=== PATIENT | female | born 1985 | race American Indian/Alaskan Native ===

== ENCOUNTER 2018-11-20 18:21 | Outpatient (CLI) | payer MEDICAID ==
[2018-11-20] MEDS ORDERED: LACTATED RINGERS 1,000 ML IV SCH (19:00)
[2018-11-20 19:19] LABS: Bacteria,Urine 1+ /HPF (Negative); Bilirubin,Urine NEG (Negative); Blood,Urine NEG (Negative); Calcium Oxalate Crystals,Urine 2+; Color,Urine Yellow (Yellow); Mucus,Urine FEW /HPF; Protein,Urine <15 mg/dL mg/dL (Negative); WBC,Urine < 1.0 /HPF (0.0-6.0)
[2018-11-20 22:22] VITALS: BP 108/55
--- NOTE | 2018-11-20 22:31 | Ultrasound Report ---
ULTRASOUND BIOPHYSICAL PROFILE INDICATION / CLINICAL INFORMATION: leaking fluid/IUGR. COMPARISON: None available. FINDINGS: BREATHING MOVEMENT = 2 GROSS BODY MOVEMENT = 2 TONE = 2 QUALITATIVE AMNIOTIC FLUID VOLUME = 2 TOTAL BIOPHYSICAL SCORE = 8/8 AMNIOTIC FLUID INDEX (cm) = 7.7 PRESENTATION: Cephalic. HEART RATE (beats per minute): 152 IMPRESSION: 1. biophysical profile = 8/8 gestational age measures about 32 weeks and 1 day. ULTRASOUND OBSTETRIC Indication: leaking fluid/IUGR Findings: There is a single intrauterine . BPD = 8.2 cm = 33 weeks, 1 day(s). Head circumference = 29.2 cm = 32 weeks, 1 day(s). Abdominal circumference = 27.0 cm = 31 weeks, 1 day(s). Femur length = 2.2 cm = 32 weeks, 2 day(s). Overall estimated sonographic age = 32 weeks, 1 day(s). heart rate is 152 beats per minute. Estimated weight is 1824 grams position is cephalic. Cervix appears closed. movement is present. Placenta is anterior and grade 1 . Amniotic fluid volume appears normal. Maternal adnexa appear normal. Impression: 1. Single living intrauterine with estimated sonographic age of 32 weeks, 1 day 2. No sonographic abnormality identified. Signer Name: Claude Rodríguez MD Signed: 11/20/2018 10:27 PM Workstation Name: [id number]
== END 2018-11-20 23:00 | disposition home or self-care (01) ==
LOC: TRG 18:21
PROVIDERS: ATTEND Obstetrics & Gynecology
DX: O42.913 Preterm premature rupture of membranes, unspecified as to length of time between rupture and onset of labor, third trimester (principal); O36.5930 Maternal care for other known or suspected poor fetal growth, third trimester, not applicable or unspecified; O26.893 Other specified pregnancy related conditions, third trimester; R25.2 Cramp and spasm; O60.03 Preterm labor without delivery, third trimester; Z3A.32 32 weeks gestation of pregnancy
CPT/HCPCS: 59025; 76816; 76819; 81001; 96360; 96361; J7120

== ENCOUNTER 2019-01-05 20:55 | Inpatient (IN) | payer MEDICAID ==
[2019-01-05] MEDS ORDERED: DINOPROSTONE 10 MG VAG SUPP VG ONE (22:10)
[2019-01-05] MEDS ORDERED: ONDANSETRON 4 MG/2 ML INJ IV PRN (22:10)
[2019-01-05] MEDS ORDERED: TERBUTALINE 1 MG/1 ML INJ IVP PRN (22:10)
[2019-01-05] MEDS ORDERED: ePHEDrine SULFATE 50 MG/1 ML INJ IV PRN (22:10)
[2019-01-05] MEDS ORDERED: LIDOCAINE (2%) 20 MG/1 ML VIAL 20 ML MDV INFILTRATI ONE (22:10)
[2019-01-05] MEDS ORDERED: TERBUTALINE 1 MG/1 ML INJ SUB-Q PRN (22:10)
[2019-01-05] MEDS ORDERED: PROMETHAZINE 25 MG TAB PO PRN (22:10)
[2019-01-05] MEDS ORDERED: fentaNYL 100 MCG/2 ML INJ IV PRN (22:10)
[2019-01-05] MEDS ORDERED: MINERAL OIL 30 ML ORAL LIQD PO PRN (22:10)
[2019-01-05] MEDS ORDERED: BUTORPHANOL 2 MG/1 ML INJ IV PRN (22:10)
--- NOTE | 2019-01-05 22:10 | History and Physical Report ---
History of Present Illness Date of examination: 01/05/19 Date of admission: 01/05/19 20:55 Chief complaint: Induction of labor History of present illness: Pt is a 33yo BF EDC 01/11/19; EGA 39 1/7 weeks presents for induction of labor per [facility] due to IUGR. She received care at [facility] since 17 weeks and co-managed by [facility] for IUGR. records are available and GBS is Negative. Past History Past Medical History: no pertinent history Past Surgical History: no surgical history Family/Genetic History: none Social history: no significant social history, single - Obstetrical History Expected Date of Delivery: 01/11/19 Actual Gestation: 39 Week(s) 2 Day(s) : 1 Medications and Allergies Allergies Allergy/AdvReac Type Severity Reaction Status Date / Time No Known Allergies Allergy Verified 11/20/18 18:58 Review of Systems All systems: negative - Vital Signs Vital signs: Vital Signs Pulse Pulse Ox 102 H 98 01/05/19 22:02 01/05/19 22:02 Temp Pulse Resp BP Pulse Ox 108 H 101/73 98 01/05/19 22:03 01/05/19 22:03 01/05/19 22:02 - Physical Exam Breasts: Positive: deferred Cardiovascular: Regular rate Lungs: Positive: Clear to auscultation Abdomen: Positive: normal appearance Genitourinary (Female): Positive: normal external genitalia Vagina: Positive: normal moisture Uterus: Positive: enlarged Extremities: Positive: normal - Obstetrical FHR: category 1 Uterine Contraction Monitor Mode: External Cervical Dilatation: 0.5 Cervical Effacement Percentage: 60 station: -2 Uterine Contraction Pattern: Regular Uterine Tone Measurement Phase: Contraction Uterine Contraction Intensity: Mild Results Result Diagrams: 01/05/19 23:00 All other labs normal. Assessment and Plan - Patient Problems (1) 39 weeks gestation of Onset Date: 01/05/19 Current Visit: Yes Status: Acute Plan to address problem: A: IUP @ 39 1/7 weeks IUGR P: Admit to L&D for cervidil/pitocin induction of labor Obtain [facility] recommendations
[2019-01-05] MEDS ORDERED: LACTATED RINGERS 1,000 ML ONE (22:11)
[2019-01-05] MEDS ORDERED: OXYTOCIN 20 UNIT/1000ML DRIP 20 UNITS/1,000 ML BAG IV SCH (23:00)
[2019-01-05] MEDS ORDERED: OXYTOCIN DRIP 30 UNITS/500 ML BAG IV SCH ×2 (23:00)
[2019-01-05 23:27] LABS: Hematocrit 34.3 % (30.3-42.9); Hemoglobin 11.9 gm/dl (10.1-14.3); Mean Corpuscular HGB Conc 35 % (30-34); Mean Corpuscular Volume 93 fl (79-97); Platelet Count 211 K/mm3 (140-440); Red Blood Count 3.68 M/mm3 (3.65-5.03); Red Cell Distribution Width 13.3 % (13.2-15.2)
[2019-01-06] MEDS: ZOLPIDEM 10 MG TAB PO PRN ×2 (00:13→22:21)
[2019-01-06] MEDS ORDERED: OXYTOCIN DRIP 30 UNITS/500 ML BAG IV SCH (13:45)
--- NOTE | 2019-01-06 14:40 | Progress Note ---
Assessment and Plan - Patient Problems (1) 39 weeks gestation of Onset Date: 01/05/19 Current Visit: Yes Status: Acute Plan to address problem: A: IUP @ 39 2/7 weeks IUGR P: Continue with pitocin induction of labor Obtain [facility] recommendations Subjective - Subjective Date of service: 01/06/19 Principal diagnosis: IUP @ 39 2/7 weeks; IUGR Interval history: Pt is a 33yo BF EDC 01/11/19; EGA 39 2/7 weeks presents for induction of labor per [facility] due to IUGR. She received care at [facility] since 17 weeks and co-managed by [facility] for IUGR. She received cervidil last night and currently about to start pitocin. She is having irregular contractions. Patient reports: movement normal, contractions, no new complaints, no loss of fluid, no vaginal bleeding Objective - Vital Signs Vital Signs: Vital Signs - 12hr 01/06/19 01/06/19 01/06/19 02:47 02:52 02:57 Temperature Pulse Rate 70 79 72 Respiratory Rate Blood Pressure O2 Sat by Pulse 100 97 96 Oximetry 01/06/19 01/06/19 01/06/19 03:02 03:07 03:23 Temperature Pulse Rate 88 73 96 H Respiratory Rate Blood Pressure 116/79 O2 Sat by Pulse 98 97 Oximetry 01/06/19 01/06/19 01/06/19 04:23 05:03 05:11 Temperature 98.4 F Pulse Rate 77 76 Respiratory Rate Blood Pressure 100/59 98/56 O2 Sat by Pulse Oximetry 01/06/19 01/06/19 01/06/19 05:23 06:24 07:23 Temperature 97.5 F L Pulse Rate 71 65 82 Respiratory 18 Rate Blood Pressure 100/63 104/56 108/68 O2 Sat by Pulse Oximetry 01/06/19 01/06/19 01/06/19 08:04 12:00 12:11 Temperature 98.3 F Pulse Rate 85 83 Respiratory Rate Blood Pressure 108/74 O2 Sat by Pulse 96 Oximetry 01/06/19 01/06/19 12:24 14:23 Temperature Pulse Rate 98 H 68 Respiratory Rate Blood Pressure 116/86 106/69 O2 Sat by Pulse Oximetry - Exam Breasts: deferred Abdomen: Present: normal appearance, soft Uterus: Present: normal FHR: category 1 Uterine Contraction Monitor Mode: External Cervical Dilatation: 2 Cervical Effacement Percentage: 80 station: -1 Uterine Contraction Pattern: Irregular Uterine Tone Measurement Phase: Contraction Uterine Contraction Intensity: Mild - Labs Labs: Abnormal Labs 01/05/19 23:00 MCHC 35 H Laboratory Results - last 24 hr 01/05/19 01/05/19 01/05/19 23:00 23:00 23:00 WBC 9.3 RBC 3.68 Hgb 11.9 Hct 34.3 MCV 93 MCH 32 MCHC 35 H RDW 13.3 Plt Count 211 RPR Nonreactive Blood Type O POSITIVE Antibody Screen Negative
[2019-01-06] MEDS: LACTATED RINGERS 1,000 ML IV SCH (16:14)
[2019-01-07] MEDS: LACTATED RINGERS 1,000 ML IV SCH ×2 (06:13→13:03)
--- NOTE | 2019-01-07 12:43 | Progress Note ---
Assessment and Plan - Patient Problems (1) 39 weeks gestation of Onset Date: 01/05/19 Current Visit: Yes Status: Acute Plan to address problem: A: IUP @ 39 3/7 weeks IUGR P: Continue with pitocin induction of labor Obtain [facility] recommendations Subjective - Subjective Date of service: 01/07/19 Principal diagnosis: IUP @ 39 3/7 weeks; IUGR Interval history: Pt is a 33yo BF EDC 01/11/19; EGA 39 3/7 weeks presented for induction of labor per [facility] due to IUGR. She received care at [facility] since 17 weeks and co-managed by [facility] for IUGR. She received cervidil followed by pitocin and currently on 20mu/min and chuyita q 3-5 mins. Patient reports: loss of fluid (AROM clear fluid), movement normal, contractions, no new complaints, no vaginal bleeding Objective - Vital Signs Vital Signs: Vital Signs - 12hr 01/07/19 01/07/19 01/07/19 06:45 07:59 08:00 Temperature 98.3 F Pulse Rate 59 L 63 61 Respiratory 18 Rate Blood Pressure 97/56 109/68 Blood Pressure 109/68 [Left] O2 Sat by Pulse 98 99 Oximetry 01/07/19 01/07/19 01/07/19 08:05 08:10 08:15 Temperature Pulse Rate 57 L 58 L 60 Respiratory Rate Blood Pressure Blood Pressure [Left] O2 Sat by Pulse 99 97 96 Oximetry 01/07/19 01/07/19 01/07/19 08:20 08:25 08:30 Temperature Pulse Rate 56 L 79 55 L Respiratory Rate Blood Pressure Blood Pressure [Left] O2 Sat by Pulse 99 97 97 Oximetry 01/07/19 01/07/19 01/07/19 08:35 08:40 08:45 Temperature Pulse Rate 60 58 L 63 Respiratory Rate Blood Pressure Blood Pressure [Left] O2 Sat by Pulse 97 97 96 Oximetry 01/07/19 01/07/19 01/07/19 08:50 09:08 09:13 Temperature Pulse Rate 59 L 65 57 L Respiratory Rate Blood Pressure Blood Pressure [Left] O2 Sat by Pulse 96 98 97 Oximetry 01/07/19 01/07/19 01/07/19 09:18 09:23 09:28 Temperature Pulse Rate 58 L 54 L 73 Respiratory Rate Blood Pressure Blood Pressure [Left] O2 Sat by Pulse 97 97 98 Oximetry 01/07/19 01/07/19 01/07/19 09:33 09:38 09:39 Temperature Pulse Rate 61 56 L 57 L Respiratory Rate Blood Pressure 121/63 Blood Pressure [Left] O2 Sat by Pulse 99 0 L Oximetry 01/07/19 01/07/19 01/07/19 09:43 10:00 10:01 Temperature Pulse Rate 68 50 L 68 Respiratory Rate Blood Pressure 115/78 Blood Pressure [Left] O2 Sat by Pulse 98 84 Oximetry 01/07/19 01/07/19 01/07/19 10:50 10:51 10:55 Temperature Pulse Rate 79 94 H 90 Respiratory Rate Blood Pressure 104/74 Blood Pressure [Left] O2 Sat by Pulse 96 96 Oximetry 01/07/19 01/07/19 01/07/19 11:00 11:05 11:10 Temperature Pulse Rate 101 H 86 78 Respiratory Rate Blood Pressure Blood Pressure [Left] O2 Sat by Pulse 96 96 95 Oximetry 01/07/19 01/07/19 01/07/19 11:15 11:20 11:25 Temperature Pulse Rate 86 74 79 Respiratory Rate Blood Pressure Blood Pressure [Left] O2 Sat by Pulse 96 97 97 Oximetry 01/07/19 01/07/19 01/07/19 11:30 11:35 11:40 Temperature 98.3 F Pulse Rate 78 87 70 Respiratory 18 Rate Blood Pressure Blood Pressure 104/74 [Left] O2 Sat by Pulse 97 97 97 Oximetry 01/07/19 01/07/19 01/07/19 11:45 11:50 11:55 Temperature Pulse Rate 71 79 69 Respiratory Rate Blood Pressure Blood Pressure [Left] O2 Sat by Pulse 97 98 98 Oximetry 01/07/19 01/07/19 01/07/19 12:09 12:14 12:19 Temperature Pulse Rate 64 73 66 Respiratory Rate Blood Pressure Blood Pressure [Left] O2 Sat by Pulse 100 99 97 Oximetry 01/07/19 01/07/19 01/07/19 12:24 12:29 12:33 Temperature Pulse Rate 63 70 91 H Respiratory Rate Blood Pressure Blood Pressure [Left] O2 Sat by Pulse 97 98 92 Oximetry 01/07/19 12:34 Temperature Pulse Rate 100 H Respiratory Rate Blood Pressure Blood Pressure [Left] O2 Sat by Pulse 98 Oximetry - Exam Uterus: Present: normal FHR: category 1 Uterine Contraction Monitor Mode: External Cervical Dilatation: 1.5 Cervical Effacement Percentage: 90 station: -1 Uterine Contraction Pattern: Regular Uterine Tone Measurement Phase: Contraction Uterine Contraction Intensity: Mild - Labs Labs: Abnormal Labs 01/05/19 23:00 MCHC 35 H
[2019-01-07] MEDS ORDERED: ePHEDrine SULFATE 50 MG/1 ML INJ IV PRN (15:50)
[2019-01-07] MEDS ORDERED: NALOXONE 2 MG/2 ML INJ IV PRN (15:50)
[2019-01-07] MEDS ORDERED: fentaNYL-BUPIV 2 MCG/ML-0.125% 200 MCG/100 ML BAG EPIDURAL SCH (16:00)
--- NOTE | 2019-01-07 20:19 | Procedure Note ---
OB Delivery Note - Delivery Date of Delivery: 01/07/19 Surgeon: FLORA TRUJILLO Estimated blood loss: other (150ml) - Vaginal Delivery presentation: vertex Delivery position: OA Intrapartum events: PROM->1hr before delivery Delivery induction: cervidil Delivery augmentation: rupture of membranes, pitocin Delivery monitor: external FHT, external uterine Route of delivery: Delivery placenta: spontaneous Delivery cord: nuchal cord, 3 umbilical vessels Episiotomy: none Delivery laceration: 1st degree, vaginal side wall Delivery repair: vicryl Anesthesia: epidural Delivery comments: Infant delivered OA and placed on Mom's chest for [id number] bonding and delayed cord clamping -cord NOT clamped or cut. - Infant A at 1 minute: 8 at 5 minutes: 9 Gender: Male (2390gms)
[2019-01-07] MEDS ORDERED: HYDROcodone/ACETAMINOPHEN 5-325 MG TAB PO PRN (20:24)
[2019-01-07] MEDS ORDERED: WITCH HAZEL/ GLYCERIN PAD TP PRN (20:24)
[2019-01-07] MEDS ORDERED: diphenhydrAMINE 25 MG CAP PO PRN (20:24)
[2019-01-07] MEDS ORDERED: BENZOCAINE/MENTHOL 20/0.5% TOP SPRAY 56 GM TP PRN (20:24)
[2019-01-07] MEDS ORDERED: ONDANSETRON 4 MG/2 ML INJ IV PRN (20:24)
[2019-01-07] MEDS ORDERED: MAGNESIUM HYDROXIDE (MOM) ORAL LIQD UDC PO PRN (20:24)
[2019-01-07] MEDS ORDERED: LANOLIN/ZINC/DIMETHICONE (LANSINOH) 7 GM TP PRN (20:24)
[2019-01-07] MEDS ORDERED: PROMETHAZINE 25 MG TAB PO PRN (20:24)
[2019-01-07] MEDS ORDERED: ACETAMINOPHEN 325 MG TAB PO PRN (20:24)
[2019-01-07] MEDS ORDERED: PROMETHAZINE 25 MG RECT SUPP PR PRN (20:24)
[2019-01-07] MEDS: IBUPROFEN 600 MG TAB PO SCH (20:55)
[2019-01-07] MEDS: SENNOSIDES/DOCUSATE SODIUM 8.6/50 MG TAB PO SCH (20:55)
[2019-01-07] MEDS ORDERED: OXYTOCIN 20 UNIT/1000ML DRIP 20 UNITS/1,000 ML BAG IV SCH (21:00)
[2019-01-08] MEDS: DOCUSATE SODIUM 100 MG CAP PO SCH ×3 (01:10→23:52)
[2019-01-08] MEDS: FERROUS SULFATE 325 MG TAB PO SCH ×3 (01:10→23:52)
[2019-01-08] MEDS: IBUPROFEN 600 MG TAB PO SCH ×4 (02:06→23:53)
--- NOTE | 2019-01-08 09:54 | Progress Note ---
Assessment and Plan - Patient Problems (1) 39 weeks gestation of Onset Date: 01/05/19 Current Visit: Yes Status: Resolved (2) (normal spontaneous vaginal delivery) Onset Date: 01/08/19 Current Visit: Yes Status: Resolved Plan to address problem: A: S/P - PPD #1 Doing well Asymptomatic anemia - stable P: May go home tomorrow. Subjective - Subjective Date of service: 01/08/19 Principal diagnosis: s/p - PPD #1 Interval history: Pt is feeling well without complaints. Bleeding improved. Patient reports: appetite normal, voiding normally, pain well controlled, flatus, ambulating normally, no dizzy ambulation, no nauseated [place]: doing well, nursing well Objective - Vital Signs Latest vital signs: Vital Signs Temp Pulse Resp BP BP Pulse Ox 01/08/19 08:36 98.0 F 74 18 94/68 98 01/08/19 04:20 98.4 F 66 18 93/58 98 01/08/19 03:06 18 01/08/19 02:06 18 01/07/19 22:03 66 122/72 01/07/19 21:58 66 118/78 01/07/19 21:55 18 01/07/19 21:48 210 H 121/94 01/07/19 21:33 72 117/78 01/07/19 21:03 55 L 102/60 01/07/19 20:55 18 01/07/19 20:48 61 105/60 01/07/19 20:33 76 109/69 01/07/19 20:18 62 109/66 01/07/19 20:03 65 94/51 01/07/19 19:58 62 98/54 01/07/19 19:48 94 01/07/19 19:42 69 100 01/07/19 19:37 53 L 99 01/07/19 19:33 62 115/74 01/07/19 19:32 58 L 99 01/07/19 19:27 67 99 01/07/19 19:22 66 99 01/07/19 19:19 54 L 106/65 01/07/19 19:17 58 L 100 01/07/19 19:12 54 L 99 01/07/19 19:07 62 99 01/07/19 19:04 58 L 104/71 01/07/19 19:03 57 L 112/68 01/07/19 19:02 60 99 01/07/19 18:57 68 99 01/07/19 18:52 59 L 99 01/07/19 18:50 68 110/72 01/07/19 18:48 97.5 F L 16 99 01/07/19 18:47 57 L 100 01/07/19 18:34 57 L 121/57 01/07/19 18:32 48 L 100 01/07/19 18:27 53 L 100 01/07/19 18:22 51 L 100 01/07/19 18:19 49 L 104/62 01/07/19 18:04 54 L 110/55 01/07/19 17:55 56 L 100 01/07/19 17:54 60 94 01/07/19 17:50 62 100 01/07/19 17:48 51 L 108/61 01/07/19 17:45 52 L 100 01/07/19 17:40 54 L 100 01/07/19 17:35 55 L 100 01/07/19 17:34 55 L 112/72 01/07/19 17:32 51 L 89 01/07/19 17:30 50 L 100 01/07/19 17:25 54 L 100 01/07/19 17:20 49 L 100 01/07/19 17:16 48 L 106/69 01/07/19 17:15 54 L 100 01/07/19 17:13 51 L 107/67 01/07/19 17:10 56 L 107/74 100 01/07/19 17:07 57 L 106/73 01/07/19 17:05 54 L 100 01/07/19 17:04 60 109/72 01/07/19 17:01 55 L 107/73 01/07/19 17:00 61 100 01/07/19 16:58 55 L 106/70 01/07/19 16:55 55 L 104/67 100 01/07/19 16:52 59 L 106/66 01/07/19 16:50 63 100 01/07/19 16:49 53 L 106/63 01/07/19 16:48 64 105/57 94 01/07/19 16:45 73 100 01/07/19 16:43 52 L 90/53 01/07/19 16:40 52 L 88/56 100 01/07/19 16:37 59 L 91/51 01/07/19 16:35 58 L 100 01/07/19 16:34 56 L 93/51 01/07/19 16:31 54 L 100/65 01/07/19 16:30 54 L 100 01/07/19 16:28 55 L 100/65 01/07/19 16:26 97 F L 66 16 102/66 100 01/07/19 16:25 50 L 102/66 100 01/07/19 16:22 53 L 98/63 01/07/19 16:20 56 L 100 01/07/19 16:19 48 L 103/65 01/07/19 16:16 49 L 104/65 01/07/19 16:15 49 L 100 01/07/19 16:14 47 L 106/66 01/07/19 16:10 79 150/105 100 01/07/19 16:07 58 L 138/88 01/07/19 16:05 76 142/89 100 01/07/19 16:02 61 145/83 86 01/07/19 16:00 97 H 100 01/07/19 15:58 65 145/86 01/07/19 15:55 39 L 99 01/07/19 15:50 64 100 01/07/19 15:45 70 100 01/07/19 15:40 77 99 01/07/19 15:35 77 100 01/07/19 15:30 74 100 01/07/19 15:25 73 99 01/07/19 15:20 86 100 01/07/19 15:15 86 100 01/07/19 15:12 81 135/91 01/07/19 15:10 72 98 01/07/19 15:05 65 98 01/07/19 15:01 16 01/07/19 15:00 60 99 01/07/19 14:57 78 140/87 01/07/19 14:55 71 99 01/07/19 14:50 76 99 01/07/19 14:45 74 100 01/07/19 14:40 88 99 01/07/19 14:35 87 97 01/07/19 14:30 68 95 01/07/19 14:25 85 100 01/07/19 13:21 74 96 01/07/19 13:20 77 94 01/07/19 13:16 96 H 96 01/07/19 13:11 85 125/94 97 01/07/19 13:06 88 97 01/07/19 12:54 65 97 01/07/19 12:49 76 96 01/07/19 12:46 81 L 01/07/19 12:44 49 L 81 L 01/07/19 12:41 29 L 80 L 01/07/19 12:39 75 98 01/07/19 12:34 100 H 98 01/07/19 12:33 91 H 92 01/07/19 12:29 70 98 01/07/19 12:24 63 97 01/07/19 12:19 66 97 01/07/19 12:14 73 99 01/07/19 12:09 64 100 01/07/19 11:55 69 98 01/07/19 11:50 79 98 01/07/19 11:45 71 97 01/07/19 11:40 98.3 F 70 18 104/74 97 01/07/19 11:35 87 97 01/07/19 11:30 78 97 01/07/19 11:25 79 97 01/07/19 11:20 74 97 01/07/19 11:15 86 96 01/07/19 11:10 78 95 01/07/19 11:05 86 96 01/07/19 11:00 101 H 96 01/07/19 10:55 90 96 01/07/19 10:51 94 H 104/74 01/07/19 10:50 79 96 01/07/19 10:01 68 115/78 01/07/19 10:00 50 L 84 Intake and Output 01/07/19 01/08/19 01/08/19 22:59 06:59 14:59 Intake Total 854.167 240 Output Total 825 500 400 Balance 29.167 -260 -400 Intake: IV 854.167 Lactated Ringers 1,000 ml 854.167 @ 125 mls/hr IV DIRECT AL Rx#:[id number] Intake, Free Water 240 Output: Urine 825 500 400 Indwelling 150 Indwelling Catheter 675 Void 500 400 Other: Total, Output Amount 225 200 400 # Voids Indwelling Catheter 1 Void 1 1 Weight 75.75 kg Estimated Blood Loss 150 - Exam Breasts: Present: deferred Abdomen: Present: normal appearance, soft Uterus: Present: normal, firm, fundal height below umbilicus Extremities: Present: normal - Labs Labs: Laboratory Tests 01/05/19 01/05/19 01/05/19 23:00 23:00 23:00 WBC 9.3 RBC 3.68 Hgb 11.9 Hct 34.3 MCV 93 MCH 32 MCHC 35 H RDW 13.3 Plt Count 211 RPR Nonreactive Blood Type O POSITIVE Antibody Screen Negative 01/08/19 09:51 WBC RBC Hgb 9.7 L Hct 29.3 L MCV MCH MCHC RDW Plt Count RPR Blood Type Antibody Screen
[2019-01-08] MEDS ORDERED: PRENATAL VIT27-FE FUMARATE-FOLIC ACID VIT TAB PO SCH (10:00)
[2019-01-08 10:15] LABS: Hematocrit 29.3 % (30.3-42.9); Hemoglobin 9.7 gm/dl (10.1-14.3)
[2019-01-08] MEDS: SENNOSIDES/DOCUSATE SODIUM 8.6/50 MG TAB PO SCH (10:54)
[2019-01-08] MEDS ORDERED: MEASLES, MUMPS & RUBELLA 12,500 UNIT/0.5 ML VACCINE SUB-Q ONE (20:24)
[2019-01-09] MEDS ORDERED: TETANUS,DIPH,PERTUSS(ACELL) VACCINE 0.5 ML SYRINGE IM ONE (06:00)
--- NOTE | 2019-01-09 09:46 | Discharge Summary ---
Providers - Providers Date of Admission: 01/05/19 20:55 Date of discharge: 01/09/19 Attending physician: FLORA TRUJILLO 01/07/19 Consult to Case Management [CONS] Routine Services Needed at Discharge: Transfer Agent Notified:: case management Phone number called:: [phone] Primary care physician: FLORA TRUJILLO Hospitalization Reason for admission: induction of labor, IUP at term, other (IUGR) Delivery: Episiotomy: none Laceration: vaginal side wall, 1st degree Incision: normal Other procedures: none complications: none Discharge diagnosis: IUP at term delivered [facility] baby: male Hospital course: Unremarkable. Condition at discharge: Good Disposition: DC-01 TO HOME OR SELFCARE - Discharge Diagnoses (1) 39 weeks gestation of Status: Resolved (2) (normal spontaneous vaginal delivery) Status: Resolved Plan - Discharge Medications Prescriptions: Ferrous Sulfate [Feosol 325 MG tab] 325 mg PO BID #60 tablet Ibuprofen [Motrin 600 MG tab] 600 mg PO Q6H #30 tablet Vit-Fe Fumar-FA [ Vitamin] 1 each PO QDAY #30 tablet - Provider Discharge Summary Activity: routine, no sex for 6 weeks, no heavy lifting 4 weeks, no strenuous exercise Diet: routine Instructions: routine Additional instructions: [] Smoking cessation referral if applicable(refer to patient education folder for contact #) [] Refer to [facility] Booklet Call your doctor immediately for: * Fever > 100.5 * Heavy vaginal bleeding ( >1 pad per hour) * Severe persistent headache * Shortness of breath * Reddened, hot, painful area to leg or breast * Drainage or odor from incision. * Keep incision clean and dry at all times and follow doctor's instructions regarding bathing/showering - Follow up plan Follow up: FLORA TRUJILLO MD [Primary Care Provider] - 6 Weeks
[2019-01-09 10:11] VITALS: BP 115/78
[2019-01-09] MEDS: IBUPROFEN 600 MG TAB PO SCH (13:35)
== END 2019-01-09 16:19 | disposition home or self-care (01) | DRG 775 ==
LOC: LD 20:55 → OB 01-07 22:58
PROVIDERS: ADMIT Obstetrics & Gynecology; ATTEND Obstetrics & Gynecology
PROC: 10E0XZZ Delivery of Products of Conception, External Approach (ICD-10-PCS; principal; 2019-01-07)
PROC: 0HQ9XZZ Repair Perineum Skin, External Approach (ICD-10-PCS; 2019-01-07)
PROC: 3E0P7VZ Introduction of Hormone into Female Reproductive, Via Natural or Artificial Opening (ICD-10-PCS; 2019-01-07)
PROC: 3E0R3BZ Introduction of Anesthetic Agent into Spinal Canal, Percutaneous Approach (ICD-10-PCS; 2019-01-07)
PROC: 00HU33Z Insertion of Infusion Device into Spinal Canal, Percutaneous Approach (ICD-10-PCS; 2019-01-07)
PROC: 3E0234Z Introduction of Serum, Toxoid and Vaccine into Muscle, Percutaneous Approach (ICD-10-PCS; 2019-01-08)
DX: O42.02 Full-term premature rupture of membranes, onset of labor within 24 hours of rupture (principal); O36.5930 Maternal care for other known or suspected poor fetal growth, third trimester, not applicable or unspecified; O69.81X0 Labor and delivery complicated by cord around neck, without compression, not applicable or unspecified; Z3A.39 39 weeks gestation of pregnancy; Z37.0 Single live birth; O70.0 First degree perineal laceration during delivery; O99.02 Anemia complicating childbirth; D64.9 Anemia, unspecified; Z23 Encounter for immunization
CPT/HCPCS: 36415; 59200; 85014; 85018; 85027; 86592; 86850; 86900; 86901; G0378; A6250; J0595; J2590; J3010; J7120